=== PATIENT | male | born 1995 | race African-American/Black ===

== ENCOUNTER 2019-10-02 00:12 | Emergency (ER) | payer OTHER ==
[~2019-10-02] VITALS: Ht 172.7 cm; Wt 72.6 kg
[~2019-10-02 00:12] MED LIST: PREDNISONE 20 M20 M1 PO; ZPAK PO
[2019-10-02] MEDS ORDERED: ACETAMINOPHEN-1 EAC2 PO (01:08)
[2019-10-02] MEDS ORDERED: MOBIC15 MG PO (01:08)
[2019-10-02] MEDS ORDERED: KEFLEX500 M1 PO (01:18)
[2019-10-02 01:33] VITALS: BP 136/84
== END 2019-10-02 01:33 | disposition home or self-care (01) ==
LOC: M.ERS 00:12
DX: S93.691A Other sprain of right foot, initial encounter (principal); S80.812A Abrasion, left lower leg, initial encounter; L03.115 Cellulitis of right lower limb; F17.210 Nicotine dependence, cigarettes, uncomplicated; W18.39XA Other fall on same level, initial encounter; Y93.51 Activity, roller skating (inline) and skateboarding; Y92.89 Other specified places as the place of occurrence of the external cause; Y99.8 Other external cause status

== ENCOUNTER 2020-01-17 14:17 | Emergency (ER) | payer OTHER ==
[~2020-01-17] VITALS: Ht 172.7 cm; Wt 74.8 kg
[~2020-01-17 14:17] MED LIST changes: +ACETAMINOPHEN-1 EAC2 PO; +KEFLEX500 M1 PO; +MOBIC15 MG PO
[2020-01-17 15:36] LABS: URINE BLOOD NEGATIVE (Negative); URINE CLARITY CLEAR; URINE COLOR DARK YELLOW; URINE GLUCOSE-RANDOM NEGATIVE (Negative); URINE KETONES 1+ (Negative); URINE LEUKOCYTES-REFLEX NEGATIVE (Negative); URINE NITRITE-REFLEX NEGATIVE (Negative); URINE PROTEIN 1+ (Negative); URINE SPECIFIC GRAVITY 1.025 (1.005-1.030)
[2020-01-17 15:39] LABS: ICTOTEST (BILI CONFIRMATORY) Positive (Negative); URINE BILIRUBIN 1+ (Negative)
[2020-01-17 16:03] LABS: HEMATOCRIT 48.2 % (42.0-52.0); HEMOGLOBIN 16.8 gm/dL (14.0-18.0); MCHC 34.9 g/dL (28.0-37.0); MCV 86.1 fL (80.0-100.0); MPV 8.2 fl. (7.2-11.1); NUCLEATED RBCS 0 /100WBC; PLATELET COUNT* 193 thou/uL (150-400); RDW-CV 13.6 % (10.5-14.5); WBC 9.2 thou/uL (4.0-11.0)
[2020-01-17 16:08] LABS: CALCIUM 9.3 mg/dL (8.5-10.1); CREATININE 1.2 mg/dL (0.6-1.3); POTASSIUM 3.5 mmol/L (3.5-5.1)
[2020-01-17 16:18] LABS: ALBUMIN 4.5 g/dL (3.4-5.0); TOTAL BILIRUBIN 0.6 mg/dL (<0.1-1.0); TOTAL PROTEIN 8.4 g/dL (6.4-8.2)
[2020-01-17 16:38] LABS: ABSOLUTE EOSINOPHILS 0.1 thou/uL (0.0-0.7); ABSOLUTE LYMPHOCYTES 0.2 thou/uL (0.8-5.3); ABSOLUTE MONOCYTES 0.9 thou/uL (0.0-1.2); PLATELET ESTIMATE ADEQUATE
[2020-01-17] MEDS ORDERED: PREDNISONE 20 M20 MG PO (18:16)
[2020-01-17] MEDS ORDERED: VENTOLIN HFA 1818 GM INH (18:16)
[2020-01-17 18:22] VITALS: BP 112/63
[2020-01-17] MEDS ORDERED: DICLOFENAC SOD50 M1 PO (18:23)
--- NOTE | 2020-01-18 15:07 | EKG ---
[place] [address] ELECTROCARDIOGRAM REPORT Name: GAVIN GARDNER Room: [facility]#: [id number] Admission: 01/17/20 Attend Phys: Discharge: 01/17/20 Date of : 89 Date of Service: 01/17/20 1554 Report #: [id number] THIS REPORT FOR: //name// [facility] ED Test Date: 2020-01-17 Test Time: 15:54:38 Pat Name: GAVIN GARDNER Department: Room: Gender: [employer]: [facility] : 1995 Requested By: Dalia Springer Order Number: [id number] MD: Deon Enriquez Measurements Intervals [place] Rate: 84 P: 59 MA: 143 QRS: 77 QRSD: 94 T: 33 QT: 356 QTc: 421 Interpretive Statements Sinus rhythm Baseline wander in lead(s) II,III,aVR,aVL,aVF,V1,V3,V4,V5,V6 Compared to ECG 01/12/2008 10:52:04 Atrial premature complex(es) no longer present Electronically Signed On 01-18-2020 15:07:46 CDT by Deon Enriquez [email or web address] <ELECTRONICALLY SIGNED> By: Deon Enriquez MD, FACC 01/18/20 1507 1554 1554 Deon Enriquez MD, FAC /EPI
== END 2020-01-17 18:25 | disposition home or self-care (01) ==
LOC: M.ERS 14:17
PROVIDERS: Nurse Practitioner Family
DX: N43.3 Hydrocele, unspecified (principal); J20.9 Acute bronchitis, unspecified; N50.3 Cyst of epididymis; F17.210 Nicotine dependence, cigarettes, uncomplicated; Z87.891 Personal history of nicotine dependence

== ENCOUNTER 2020-04-06 13:00 | Emergency (ER) | payer OTHER ==
[~2020-04-06] VITALS: Ht 170.2 cm; Wt 74.8 kg
[~2020-04-06 13:00] MED LIST changes: +DICLOFENAC SOD50 M1 PO; +PREDNISONE 20 M20 MG PO; +VENTOLIN HFA 1818 GM INH
[2020-04-06 14:57] VITALS: BP 126/68
== END 2020-04-06 14:58 | disposition home or self-care (01) ==
LOC: M.ERS 13:00
DX: S62.317A Displaced fracture of base of fifth metacarpal bone, left hand, initial encounter for closed fracture (principal); F17.210 Nicotine dependence, cigarettes, uncomplicated; W51.XXXA Accidental striking against or bumped into by another person, initial encounter; Y93.89 Activity, other specified; Y92.89 Other specified places as the place of occurrence of the external cause; Y99.8 Other external cause status

== ENCOUNTER 2021-03-13 16:49 | Emergency (ER) | payer BC ==
[~2021-03-13] VITALS: Ht 170.2 cm; Wt 70.3 kg
[2021-03-13 17:38] LABS: URINE BILIRUBIN NEGATIVE (Negative); URINE BLOOD NEGATIVE (Negative); URINE CLARITY CLEAR; URINE COLOR YELLOW; URINE GLUCOSE-RANDOM NEGATIVE (Negative); URINE KETONES NEGATIVE (Negative); URINE LEUKOCYTES-REFLEX NEGATIVE (Negative); URINE NITRITE-REFLEX NEGATIVE (Negative); URINE PROTEIN NEGATIVE (Negative); URINE SPECIFIC GRAVITY 1.025 (1.005-1.030); URINE UROBILINOGEN 0.2 E.U./dl (0.2-1.0)
[2021-03-13 19:12] LABS: ABSOLUTE EOSINOPHILS 0.1 thou/uL (0.0-0.7); ABSOLUTE LYMPHOCYTES 1.7 thou/uL (0.8-5.3); ABSOLUTE MONOCYTES 0.4 thou/uL (0.0-1.2); ABSOLUTE NEUTROPHILS 3.4 thou/uL (1.6-8.1); BASOPHILS 0.8 %; EOSINOPHILS 2.5 %; HEMATOCRIT 46.1 % (42.0-52.0); LYMPHOCYTES 29.5 %; MCH 29.6 pg (26.0-34.0); MCHC 34.7 g/dL (28.0-37.0); MCV 85.3 fL (80.0-100.0); MONOCYTES 7.5 %; MPV 8.1 fl. (7.2-11.1); NUCLEATED RBCS 0 /100WBC; PLATELET COUNT* 207 thou/uL (150-400); POLYS 59.7 %; RDW-CV 13.3 % (10.5-14.5); WBC 5.6 thou/uL (4.0-11.0)
[2021-03-13 19:20] LABS: CALCIUM 8.8 mg/dL (8.5-10.1); POTASSIUM 3.5 mmol/L (3.5-5.1)
[2021-03-13 19:24] LABS: ALBUMIN 3.9 g/dL (3.4-5.0); TOTAL BILIRUBIN 0.4 mg/dL (<0.1-1.0); TOTAL PROTEIN 7.2 g/dL (6.4-8.2)
[2021-03-13] MEDS ORDERED: CARAFATE 1 GM TA1 G1 PO (19:50)
[2021-03-13] MEDS ORDERED: PEPCID20 MG PO (19:50)
[2021-03-13 19:55] VITALS: BP 122/64
== END 2021-03-13 19:55 | disposition home or self-care (01) ==
LOC: M.ERS 16:49
PROVIDERS: Physician Assistant
DX: R10.13 Epigastric pain (principal); F17.210 Nicotine dependence, cigarettes, uncomplicated